=== PATIENT | male | born 1990 | race Caucasian/White ===

== ENCOUNTER 2017-10-12 13:21 | Emergency (ER) | payer SELFPAY ==
[~2017-10-12] VITALS: Ht 188 cm; Wt 72.6 kg
--- NOTE | 2017-10-12 13:32 | NUR ---
DR GUZMAN AT BEDSIDE FOR EVALUATION.
--- NOTE | 2017-10-12 13:35 | NUR ---
Patient discharged to home in stable conditon. Written and verbal after care instructions given to patient. Patient verbalizes understanding of instructions.
== END 2017-10-12 13:36 | disposition home or self-care (01) ==
LOC: ER 13:23
DX: L03.113 Cellulitis of right upper limb (principal); J45.909 Unspecified asthma, uncomplicated
CPT/HCPCS: 99283; A4663